=== PATIENT | male | born 1950 | race Caucasian/White ===

== ENCOUNTER → 2016-12-02 | Outpatient (CLI) | payer MEDICARE, OTHER ==
[2016-12-02 15:08] LABS: CH 30.3; CHCM 32.3; HCT 47.8 % (39.0-53.0); HDW 2.39; HGB 15.4 gm/dL (13.0-17.5); MCH 30.4 pg (25.0-35.0); MCHC 32.3 g/dL (31.0-37.0); Mean Platelet Volume 7.3; RBC 5.08 m/uL (4.30-5.90); RDW 12.5 % (11.5-15.5)
[2016-12-02 15:14] LABS: Anion Gap 12 mmol/L; Blood Urea Nitrogen 21 mg/dL (9-20); Carbon Dioxide 30 mmol/L (22-30); Chloride 101 mmol/L (98-107); Non-African American GFR(MDRD) >60 (>60 ml/min/1.73 sqM); Potassium 5.9 mmol/L (3.5-5.1); Sodium 143 mmol/L (137-145)
== END | disposition home or self-care (01) ==
LOC: LABWHC1 14:39
PROVIDERS: ATTEND Internal Medicine Interventional Cardiology
DX: Z01.812 Encounter for preprocedural laboratory examination (principal); I73.9 Peripheral vascular disease, unspecified
CPT/HCPCS: 80051; 82565; 84520; 85027

== ENCOUNTER 2016-12-24 06:36 | Day surgery (SDC) | payer MEDICARE, OTHER ==
[2016-12-23 08:38] VITALS: BMI 29.7
[~2016-12-24 06:36] MED LIST: SODIUM CHLORIDE 0.9% 1,000 ML IV SCH
[2016-12-24 07:15] LABS: Glucose,Whole Blood 121 mg/dL (75-99)
[2016-12-24] MEDS ORDERED: diphenhydrAMINE 50 MG/ML 1 ML VIAL IVP ONE (08:18)
[2016-12-24] MEDS ORDERED: MIDAZOLAM 2 MG/2 ML VIAL IV ONE ×2 (08:19→08:38)
[2016-12-24] MEDS ORDERED: LIDOCAINE 2% INJ 20 MG/ML SQ ONE (08:20)
[2016-12-24] MEDS ORDERED: HEPARIN SODIUM 1,000 UNIT/ML VIAL IV ONE ×2 (08:35→08:42)
[2016-12-24] MEDS ORDERED: CLOPIDOGREL 75 MG TAB PO ONE (08:41)
[2016-12-24] MEDS: hydrALAZINE HCL 20 MG/ML 1 ML VIAL IV ONE ×2 (08:44→08:58)
[2016-12-24] MEDS ORDERED: ASPIRIN 325 MG TAB PO ONE (08:44)
[2016-12-24] MEDS ORDERED: fentaNYL (PF) 50 MCG/ML 2 ML AMP IV ONE (08:57)
[2016-12-24] MEDS ORDERED: IOHEXOL 350 MG/ML 100 ML BOTTLE INJ ONE (09:02)
[2016-12-24] MEDS ORDERED: SODIUM CHLORIDE 0.9% 1,000 ML IV SCH (09:15)
--- NOTE | 2016-12-24 09:39 | IR ---
EXAMINATION TYPE: IR angio aortic arch DATE OF EXAM: 12/24/2016 9:30 AM COMPARISON: NONE HISTORY: Peripheral vascular occlusive disease. Fluoroscopy was applied to the referring clinician. See dictated report from cardiology.
[2016-12-24] MEDS ORDERED: ATROPINE SULFATE 0.1 MG/ML 10ML SYRINGE IVP ONE ×2 (11:15→12:40)
[2016-12-24 11:30] LABS: Glucose,Whole Blood 111 mg/dL (75-99)
[2016-12-24] MEDS ORDERED: ACETAMINOPHEN TAB 325 MG TAB PO PRN (12:27)
[2016-12-24 17:19] LABS: Glucose,Whole Blood 160 mg/dL (75-99)
--- NOTE | 2016-12-24 21:43 | LTR ---
December 24, 2016 RE: Alex Cabrales Aleksandar Dear Dr. Woodruff: Per our discussion on the phone, Mr. Alxe Cabrales underwent successful stenting of the left subclavian for quite severe eccentric lesion involving the proximal part of the left subclavian. The procedure was successful with good angiographic result and without any complication. By the end of the procedure, I was able to feel an excellent pulse in the left radial artery. I want to thank you for allowing us to participate in his care and please do not hesitate to call if you have any questions or concerns. Sincerely, TODD CELIS MD
--- NOTE | 2016-12-24 21:55 | PCN ---
DATE OF PROCEDURE: 12/24/2016 PERFORMING PHYSICIAN: Sedrick Perry M.D., line haul driver. PROCEDURES PERFORMED: 1. Aortic arch angiogram. 2. Selective left subclavian angiogram. 3. Successful stenting of the left subclavian using a 10.0 x 29 mm balloon expandable stent, with good angiographic results. 4. Selective right common femoral artery angiogram. INDICATION: This is a pleasant 66-year-old male patient who was sent by Dr. Peñaloza regarding left subclavian stenosis. The patient was found to have a heart murmur over the left carotid artery. He underwent a carotid duplex study which showed evidence of mild carotid disease but evidence of flow reversal in the left vertebral artery. Subsequently he underwent an arterial duplex study which showed severe left subclavian stenosis. He was brought today for left subclavian angiogram and possible stenting. APPROACH: Right common femoral artery. COMPLICATIONS: None. LEVEL OF SEDATION: Moderate. PROCEDURE DESCRIPTION: After obtaining informed consent, the patient was brought to the [facility]. The right common femoral artery was cannulated using micropuncture technique. The micropuncture wire passed easily. Then I placed a 5 Mexican sheath 11 cm in the right common femoral artery. Subsequently I did an aortic arch angiogram using a 5 Mexican pigtail catheter which was placed in the ascending aorta. After that I intervened on the left subclavian artery after I did selective left subclavian angiogram. The procedure was completed without any complication. The aortic arch angiogram was performed in the SAMMARINESE projection. AORTIC ARCH ANGIOGRAM: 1. The aortic arch is a type I aortic arch and seems to be angiographically normal. 2. The innominate artery appeared to be angiographically normal. 3. The left common carotid artery seems to be angiographically normal. 4. The left subclavian has severe eccentric lesion that seems to be in the range of 80%. LEFT SUBCLAVIAN STENTING: Anticoagulation was initiated using heparin and the patient was given a total of 12,000 units of heparin IV. After that I engaged the left subclavian using a 5 Mexican Bernardino León catheter. I did advance an Advantage wire into the left subclavian all the way to the left arm. Subsequently I exchanged my 5 Mexican Bernardino León catheter for a 7 Mexican 90 cm sheath, and I did that over the Advantage wire. The tip of the sheath was positioned in the ostial left subclavian. After that the dilator was pulled out and the sheath was advanced gently for a few millimeters. Then I flushed the sheath. Subsequently I did selective left subclavian angiogram. After that I did direct stenting using a 10.0 x 29 mm balloon expandable stent, where the stent was positioned under fluoroscopy guidance, then it was deployed under its nominal pressure for 1 minute. The following angiogram showed good angiographic result without perforation, without dissection, with excellent flow in the left subclavian as well as good opacification of the left vertebral and innominate artery. The procedure was completed without any complication. Post-procedure management will be: 1. Dual antiplatelet therapy. 2. Risk factor modification. 3. Followup with the patient.
[2016-12-25 00:42] VITALS: RESP 16
[2016-12-25 03:47] VITALS: TEMP 97.1
[2016-12-25 06:34] LABS: Non-African American GFR(MDRD) >60 (>60 ml/min/1.73 sqM)
[2016-12-25 08:27] LABS: Hemoglobin A1C 6.6 % (4.2-6.1)
[2016-12-25 08:55] VITALS: BP 121/66; PULSE 73
[2016-12-25] MEDS ORDERED: ASPIRIN 325 MG TAB PO SCH (09:00)
[2016-12-25] MEDS ORDERED: CLOPIDOGREL 75 MG TAB PO SCH (09:00)
[2016-12-25 12:45] LABS: Basophils % (A) 0 %; CH 29.8; CHCM 32.1; Eosinophils # (A) 0.1 k/uL (0-0.7); Eosinophils % (A) 1 %; HDW 2.24; HGB 13.9 gm/dL (13.0-17.5); Luc # (Auto) 0.22; Luc % (Auto) 3; Lymphocytes # (A) 1.6 k/uL (1.0-4.8); Lymphocytes % (A) 22 %; MCH 29.4 pg (25.0-35.0); MCHC 31.5 g/dL (31.0-37.0); MCV 93.4 fL (80.0-100.0); Mean Platelet Volume 7.2; Monocytes # (A) 0.5 k/uL (0-1.0); Monocytes % (A) 7 %; Neutrophils # (A) 4.9 k/uL (1.3-7.7); Neutrophils % (A) 67 %; RBC 4.71 m/uL (4.30-5.90); RDW 12.8 % (11.5-15.5); WBC 7.4 k/uL (3.8-10.6); WBC (Perox) 7.35
[2016-12-25 12:50] LABS: Anion Gap 9 mmol/L; Blood Urea Nitrogen 19 mg/dL (9-20); Calcium 9.5 mg/dL (8.4-10.2); Carbon Dioxide 29 mmol/L (22-30); Chloride 104 mmol/L (98-107); Glucose 125 mg/dL (74-99); Potassium 4.8 mmol/L (3.5-5.1); Sodium 142 mmol/L (137-145)
--- NOTE | 2016-12-26 13:20 | DS ---
DATE OF ADMISSION: 12/24/2016 DATE OF DISCHARGE: 12/25/2016 BRIEF HISTORY: This is a pleasant 66-year-old gentleman who was admitted to the hospital yesterday and underwent successful stenting of the left subclavian with a good angiographic result and without any complication. The patient is going to be discharged home on dual antiplatelet therapy and I will follow up with the patient as an outpatient in the office.
== END 2016-12-25 13:03 | disposition home or self-care (01) ==
LOC: CATHCVL 06:36 → 6SEL 09:06 → CATHCVL 12-25 13:03
PROVIDERS: ATTEND Internal Medicine Interventional Cardiology
DX: I70.8 Atherosclerosis of other arteries (principal); R01.1 Cardiac murmur, unspecified; I73.9 Peripheral vascular disease, unspecified; E11.9 Type 2 diabetes mellitus without complications; I10 Essential (primary) hypertension; Z82.49 Family history of ischemic heart disease and other diseases of the circulatory system; Z79.82 Long term (current) use of aspirin; Z79.899 Other long term (current) drug therapy; Z88.1 Allergy status to other antibiotic agents; Z88.5 Allergy status to narcotic agent; Z87.891 Personal history of nicotine dependence
CPT/HCPCS: 75710; 36221; 37238; 80048; 83036; 85025; 99152; 99153 ×2; C1894 ×3; C1876; C1769 ×4; J2001; J2250; J0360; J1200; Q9967; J0461; J3010; J1644

== ENCOUNTER → 2022-04-10 | Outpatient (CLI) | payer MEDICARE, OTHER ==
[2022-04-10 14:02] LABS: Basophils % (A) 0 %; Eosinophils % (A) 1 %; HGB 14.5 gm/dL (13.0-17.5); Lymphocytes # (A) 1.1 k/uL (1.0-4.8); Lymphocytes % (A) 14 %; MCHC 32.9 g/dL (31.0-37.0); MCV 97.5 fL (80.0-100.0); Mean Platelet Volume 8.3; Monocytes # (A) 0.4 k/uL (0-1.0); Monocytes % (A) 4 %; Neutrophils # (A) 6.4 k/uL (1.3-7.7); Neutrophils % (A) 79 %; Platelet Count 198 k/uL (150-450); RBC 4.51 m/uL (4.30-5.90); RDW 12.8 % (11.5-15.5); WBC 8.1 k/uL (3.8-10.6)
[2022-04-10 14:11] LABS: ALT 30 U/L (4-49); AST 33 U/L (17-59); African American GFR (CKD) >90 (>60 ml/min/1.73 sqM); Albumin 4.7 g/dL (3.5-5.0); Albumin/Globulin Ratio 1.5; Alkaline Phosphatase 103 U/L (38-126); Anion Gap 8 mmol/L; Blood Urea Nitrogen 19 mg/dL (9-20); Calcium 9.6 mg/dL (8.4-10.2); Carbon Dioxide 30 mmol/L (22-30); Chloride 101 mmol/L (98-107); Globulin 3.1 g/dL; Glucose 102 mg/dL (74-99); Non-African American GFR(CKD) 86 (>60 ml/min/1.73 sqM); Potassium 4.6 mmol/L (3.5-5.1); Sodium 139 mmol/L (137-145); Total Bilirubin 0.8 mg/dL (0.2-1.3); Total Protein 7.8 g/dL (6.3-8.2)
--- NOTE | 2022-04-10 15:22 | CT ---
EXAMINATION TYPE: CT chest w con DATE OF EXAM: 04/10/2022 COMPARISON: None HISTORY: pain that radiates CT DLP: 515.4 mGycm, Automated exposure control for dose reduction was used. CONTRAST: Performed injected with 70ml mL of Isovue 300. TECHNIQUE: Axial images were obtained at 5 mm thick sections. Reconstructed images are reviewed on RAREFORM computer in the coronal plane. There is limitation due to beam hardening artifact from bilateral s houlder prostheses. FINDINGS: Portion of the thyroid visualized is normal. Faint area of pneumonitis is in the posterior left lung. Series 4 image 32 No enlarged mediastinal or hilar adenopathy is evident. The ascending aorta diameter at the level o f the main pulmonary artery is 3.4 cm. The main pulmonary artery diameter at the bifurcation is 2.[address] sections are obtained through the upper abdomen. Abdomen is essentially unremarkable. IMPRESSIONS: 1. Minimal pneumonitis change posterior left lung. Early pneumonia and atelectasis could be considere d.
== END | disposition home or self-care (01) ==
LOC: RADCTMAIN 13:09
PROVIDERS: ATTEND Family Medicine
DX: J18.9 Pneumonia, unspecified organism (principal); J98.11 Atelectasis
CPT/HCPCS: 80053; 85025; 71260; 36415; Q9967

== ENCOUNTER → 2022-05-09 | Outpatient (CLI) | payer MEDICARE, OTHER ==
--- NOTE | 2022-05-10 05:52 | MR ---
EXAMINATION TYPE: MR thoracic spine wo con DATE OF EXAM: 05/09/2022 COMPARISON: None HISTORY: Mid back pain, left side lower tspine radiculopathy Multiplanar multiecho imaging of the thoracic spine with no contrast. The thoracic vertebra have normal alignment. There is a mild posterior disc herniation at T8-9. There is developmentally adequate spinal canal and no stenosis. At T10-11 and T11-12 and T12-L1 there is s mall posterior disc bulging. No significant spinal stenosis. Thoracic spinal cord shows no edema. There is no thoracic paraspinal mass. No compression fracture. No focal bone destruction. IMPRESSION: Multilevel spondylotic changes in the thoracic spine with posterior disc bulging at both levels and n o significant spinal stenosis. No fracture seen. No focal bone destruction.
== END | disposition home or self-care (01) ==
LOC: RADMRIMAIN 12:56
PROVIDERS: ATTEND Neurological Surgery
DX: M47.24 Other spondylosis with radiculopathy, thoracic region (principal)
CPT/HCPCS: 72146

== ENCOUNTER → 2022-05-10 | Outpatient (CLI) | payer MEDICARE, OTHER ==
--- NOTE | 2022-05-11 04:16 | MR ---
EXAMINATION TYPE: MR lumbar spine wo con DATE OF EXAM: 05/10/2022 COMPARISON: None HISTORY: Lower back pain, left side. Multiplanar multiecho imaging of the lumbar spine with no contrast. The lumbar vertebrae have normal alignment. There is moderate narrowing of the disc spaces at L4-5 an d L5-S1. There is mild narrowing of the other disc spaces. No compression fracture. There is posterio r disc bulging at L1-2 and L2-3. There is developmentally adequate spinal canal. No spinal stenosis. No lumbar paraspinal mass. There is no evidence of lateral disc radiation. There is mild multilevel n arrowing of the neural foramina due to disc space narrowing and facet arthropathy. No focal bone dest ruction. IMPRESSION: Spondylotic changes as above. No significant spinal stenosis. Mild posterior disc herniations at L1-2 and L2-3.
== END | disposition home or self-care (01) ==
LOC: RADMRIMAIN 14:49
PROVIDERS: ATTEND Neurological Surgery
DX: M99.73 Connective tissue and disc stenosis of intervertebral foramina of lumbar region (principal); M47.896 Other spondylosis, lumbar region; M48.07 Spinal stenosis, lumbosacral region
CPT/HCPCS: 72148

== ENCOUNTER → 2022-05-21 | Outpatient (CLI) | payer MEDICARE, OTHER ==
--- NOTE | 2022-05-22 09:20 | CT ---
EXAMINATION TYPE: CT lumbar spine wo con DATE OF EXAM: 05/21/2022 COMPARISON: None HISTORY: 71-year-old male M4 8.062, spinal stenosis, Low back pain x2 months, no injury. TECHNIQUE: Contiguous axial scanning of the lumbar spine without IV contrast. Coronal and sagittal re constructions performed. CT DLP: 1075.1 mGycm Automated exposure control for dose reduction was used. FINDINGS: Small hiatal hernia. There is a 1.7 cm parapelvic cyst upper left kidney. Low density nodularity left adrenal gland measuring 1 cm, likely underlying lipid rich adrenal adenoma. Similarly, 1.1 cm low-de nsity nodule right adrenal gland. Ectatic upper abdominal aorta 2.6 cm. Sigmoid diverticulosis. There is degenerative bony ankylosis across the SI joints. Degenerative levoconvex scoliosis. There is advanced disc/endplate degenerative change towards the ri ght at L2-L3 with extensive Modic type III endplate change due to the concavity. Degenerative interbo dy ankylosis L4-S1 levels. Slight left lateral subluxations L3-L4 and L4-L5. Grade 1 retrolisthesis L2-L3 and L1-L2. Reverse of the normal cervical lordosis. Vertebral body heights are preserved. There is severe hypertrophic facet arthropathy throughout along with Baastrup's disease. Disc osteophyte complexes are present at multiple levels, largest at L1-L2 and L2-L3. At these levels , there is at least moderate spinal canal stenosis, possibly moderate to severe at L1-L2. Possible mild to moderate spinal canal stenosis at T12-L1. On the left, resulting in multilevel moderate neural foraminal stenoses. Severe T10-T11, T11-T12, and L5-S1. On the right, changes result in multilevel moderate foraminal stenoses, severe at L2-L3. IMPRESSION: 1. DEGENERATED LEVOCONVEX SCOLIOSIS. SEVERE DISC/ENDPLATE DEGENERATIVE CHANGE TOWARDS THE RIGHT AT L2 -L3 DUE TO THE CONCAVITY. REVERSAL OF THE NORMAL CERVICAL LORDOSIS AND DEGENERATIVE GRADE 1 RETROLIST HESIS L1-L2 AND L2-L3. 2. DEGENERATIVE BONY ANKYLOSIS L4-S1 LEVELS AND ALSO AT THE BILATERAL SI JOINTS. 3. DISC OSTEOPHYTE COMPLEX IS LARGEST AT L1-L2 AND L2-L3. POSSIBLE MODERATE TO SEVERE SPINAL CANAL NA RROWING AT L1-L2 AND AT LEAST MODERATE AT L2-L3. POSSIBLE MILD TO MODERATE SPINAL CANAL STENOSIS T12- L1. 4. 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 5. VARIABLE MODERATE NEURAL FORAMINAL STENOSES THROUGHOUT, SEVERE AT SOME LEVELS OUTLINED ABOVE. 6. SMALL HIATAL HERNIA. SUSPECT BENIGN BILATERAL LIPID RICH ADRENAL ADENOMAS MEASURING UP TO 1.1 CM.
== END | disposition home or self-care (01) ==
LOC: RADCTMAIN 17:51
PROVIDERS: ATTEND Neurological Surgery
DX: M47.816 Spondylosis without myelopathy or radiculopathy, lumbar region (principal); M99.73 Connective tissue and disc stenosis of intervertebral foramina of lumbar region; M41.86 Other forms of scoliosis, lumbar region; M48.061 Spinal stenosis, lumbar region without neurogenic claudication; M48.062 Spinal stenosis, lumbar region with neurogenic claudication; K44.0 Diaphragmatic hernia with obstruction, without gangrene
CPT/HCPCS: 72131

== ENCOUNTER → 2022-12-17 | Outpatient (CLI) | payer MEDICARE, OTHER ==
--- NOTE | 2022-12-18 07:42 | MR ---
EXAMINATION TYPE: MR thoracic spine wo con DATE OF EXAM: 12/17/2022 COMPARISON: MRI thoracic spine May 09, 2022 HISTORY: Mid back pain. Thoracic region radiculopathy. TECHNIQUE: Multiplanar, multisequence imaging of thoracic spine is performed without contrast FINDINGS: There is dextroconvex scoliosis centered in the midthoracic spine redemonstrated. Spinal c ord shows demonstrates normal caliber and signal as it courses the thoracic spine. Vertebral body he ights remain satisfactory. Bone marrow signal intensity is preserved. There are posterior disc herni ations efface the anterior thecal sac at T2-T3 level sagittal image 5 and T4-T5 level sagittal image 9 along with disc herniation T8-T9 through the T12-L1 levels with greatest herniations seen at T8-T9, T10-T11, and T12-L1 levels similar in appearance to prior MRI. Review of the axial images confirm the above labral disc herniations no significant new or enlarging disc herniations are present. There are probable central small simple parapelvic cysts in both kidney s partially imaged. IMPRESSION: Scoliosis with multilevel degenerative changes in the thoracic spine as detailed above. T here is no significant degenerative progression or change from prior MRI.
== END | disposition home or self-care (01) ==
LOC: RADMRIMAIN 05:54
PROVIDERS: ATTEND Neurological Surgery
DX: M47.24 Other spondylosis with radiculopathy, thoracic region (principal); M41.34 Thoracogenic scoliosis, thoracic region
CPT/HCPCS: 72146

== ENCOUNTER → 2023-03-06 | Outpatient (CLI) | payer MEDICARE, OTHER ==
--- NOTE | 2023-03-06 15:14 | MR ---
EXAMINATION TYPE: MR lumbar spine wo con DATE OF EXAM: 03/06/2023 2:57 PM COMPARISON: NONE HISTORY: Low back pain, history of surgery Multiplanar, MultiSpin echo imaging of the lumbar spine was performed. Curvature noted convex to the left. L1-L2: Moderate degenerative disc space narrowing. Posterior disc bulge effaces the ventral thecal sa c. There is left lateral recess stenosis seen. No evidence of central stenosis. Mild bilateral neural foraminal encroachment. No evidence of ned disc herniation. L2-L3: Moderate disc desiccation with posterior disc bulge. Effacement of the ventral thecal sac with bilateral lateral recess stenosis. There is severe bilateral neural foraminal encroachment. No evide nce or central stenosis. Facet joint arthropathy. L3-L4: Normal disc appearance without desiccation. No herniation, protrusion or disc bulging. No ca nal stenosis is present. Foramina are patent bilaterally. L4-L5: Severe disc desiccation. No significant disc bulge. Ventral and dorsal spondylosis with mild e ffacement of ventral thecal sac. No central stenosis. Severe facet joint arthropathy with mild bilate ral neural foraminal encroachment. L5-S1: Severe disc desiccation. No significant disc bulge. Ventral and dorsal spondylosis with mild e ffacement of ventral thecal sac. No central stenosis. Severe facet joint arthropathy with mild bilate ral neural foraminal encroachment. Lumbar segments are intact. No paraspinal masses are identified. Conus medullaris has a normal appe arance. IMPRESSION: 1. Multilevel degenerative disc disease with varying degrees of disc bulging and lateral recess steno sis. As also varying degrees of neural foraminal encroachment as outlined above. No evidence for cent ral stenosis at this time.
--- NOTE | 2023-03-08 19:50 | CT ---
EXAMINATION TYPE: CT thor lumbar spine wo con DATE OF EXAM: 03/06/2023 COMPARISON: MRI thoracic spine 12/17/2022 and lumbar spine 03/06/2023 HISTORY: 72-year-old male M54.16, radiculopathy TECHNIQUE: Contiguous axial scanning of the thoracic and lumbar spine without IV contrast. Coronal an d sagittal reconstructions performed. CT DLP: 1367 mGycm Automated exposure control for dose reduction was used. FINDINGS: Thoracic spine: * Reverse right shoulder arthroplasty. Total left shoulder arthroplasty. * Small hiatal hernia. * There is a left subclavian artery stent. There is a degenerated S-shaped scoliosis throughout the thoracolumbar spine. There is [id number] multilevel degenerative disc disease with variable disc space narrowing, sm all endplate Schmorl's nodes, some minimal scattered vacuum phenomenon, and bulging discs. Largest posterior disc bulges are noted at T8-T9 which may contribute to a mild to moderate spinal ca nal stenosis, possibly slightly progressed from 12/17/2022. There appears to have been previous left sided laminotomy change at T10. Additional disc bulge at T12-L1 may contribute to a mild spinal canal stenosis. Otherwise, scattered small disc protrusions are present with assessment limited by CT. There is multilevel facet arthropathy. On the right, this contributes to at least moderate neuroforaminal stenoses at multiple levels includ ing T9-L1 levels and possibly moderate to severe at a couple levels in the upper thoracic spine. On the left, this consider beast is severe neuroforaminal stenosis at T10-T11 and T11-T12. Also, glenn re at some levels in the upper thoracic spine. Moderate at multiple levels throughout the mid thoraci c spine. Lumbar spine: Vertebral body heights are preserved. Degenerative grade 1 retrolisthesis L1-L2. Degenerative grade 1 anterolisthesis L3-L4. There is severe hypertrophic facet arthropathy with secondary erosive change involving multiple facet joints. At L1-L2, mild narrowing of the spinal canal with grade 1 retrolisthesis secondary to disc osteophyte complex. Severe right and moderate left foraminal stenosis. At L2-L3, mild narrowing of the spinal canal with severe right and moderate left neural foraminal julianne nosis. At L3-L4, no significant spinal canal stenosis. There is moderate bilateral neural foraminal stenosis . Degenerative bony ankylosis at L4-L5 and L5-S1. At L4-L5, no significant spinal canal stenosis. There is moderate bilateral neuroforaminal stenosis. At L5-S1, hyperostotic changes contributing to moderate to severe right and severe left neural forami nal stenosis. Degenerative bony ankylosis at the bilateral SI joints. IMPRESSION: THORACIC SPINE: 1. Degenerated S-shaped scoliosis throughout the thoracolumbar spine. Mild to moderate multilevel deg enerative disc disease. Multilevel hypertrophic facet arthropathy. No vertebral compression collapse or malalignment seen. 2. Scattered small disc protrusions, largest at T8-T9 may contribute to a mild to moderate spinal can al stenosis, possibly slightly progressed from 12/17/2022. Suspect a mild spinal canal stenosis at T12 -L1. 3. There appears to have been a previous left-sided T10 laminotomy. 4. Variable moderate neuroforaminal stenoses as outlined above. Severe at a few levels also as mentio silva above. LUMBAR SPINE: 5. Moderate to advanced multilevel spondylotic change. Levoconvex scoliosis of the lumbar spine as m entioned above. Degenerative bony ankylosis L4-L5, L5-S1, and bilateral SI joints 6. Overall mild spinal canal stenoses at L1-L2 and L2-L3. 7. Variable neural foraminal stenoses as outlined above, severe on the right at both L1-L2 and L2-L3. Also on the left at L5-S1. Moderate to severe on the right at L5-S1.
== END | disposition home or self-care (01) ==
LOC: RADMRIMAIN 13:57
PROVIDERS: ATTEND Orthopaedic Surgery
DX: M51.16 Intervertebral disc disorders with radiculopathy, lumbar region (principal); M47.814 Spondylosis without myelopathy or radiculopathy, thoracic region; M47.26 Other spondylosis with radiculopathy, lumbar region; M48.061 Spinal stenosis, lumbar region without neurogenic claudication; M51.34 Other intervertebral disc degeneration, thoracic region; M41.55 Other secondary scoliosis, thoracolumbar region; M51.24 Other intervertebral disc displacement, thoracic region
CPT/HCPCS: 72128; 72131; 72148